=== PATIENT | female | born 1985 | race Caucasian/White ===

== ENCOUNTER 2017-11-18 10:57 | Emergency (ER) | payer OTHER ==
[~2017-11-18] VITALS: Ht 152.4 cm; Wt 56.7 kg
[2017-11-18] MEDS ORDERED: NEURONTIN800 MG PO (11:33)
[2017-11-18] MEDS ORDERED: LAMICTAL100 MG PO ×2 (11:34→11:47)
[2017-11-18] MEDS ORDERED: SEROQUEL100 MG PO ×2 (11:34→11:47)
[2017-11-18] MEDS ORDERED: TRAZODONE HCL100 MG PO ×2 (11:35→11:47)
[2017-11-18] MEDS ORDERED: GABAPENTIN800 MG PO (11:47)
== END 2017-11-18 15:28 | disposition home or self-care (01) ==
LOC: ED 10:57
DX: F31.9 Bipolar disorder, unspecified (principal); F32.9 Major depressive disorder, single episode, unspecified; F43.10 Post-traumatic stress disorder, unspecified; F17.200 Nicotine dependence, unspecified, uncomplicated; Z79.899 Other long term (current) drug therapy
CPT/HCPCS: 99283

== ENCOUNTER 2022-11-06 21:35 | Emergency (ER) | payer OTHER ==
[~2022-11-06] VITALS: Ht 152.4 cm; Wt 56.7 kg
[~2022-11-06 21:35] MED LIST: GABAPENTIN800 MG PO; LAMICTAL100 MG PO; NEURONTIN800 MG PO; SEROQUEL100 MG PO; TRAZODONE HCL100 MG PO
== END 2022-11-07 11:43 | disposition home or self-care (01) ==
LOC: ED 21:35
DX: R45.851 Suicidal ideations (principal); S16.1XXA Strain of muscle, fascia and tendon at neck level, initial encounter; S39.012A Strain of muscle, fascia and tendon of lower back, initial encounter; F17.200 Nicotine dependence, unspecified, uncomplicated; V89.2XXA Person injured in unspecified motor-vehicle accident, traffic, initial encounter; Z79.899 Other long term (current) drug therapy; Z20.822 Contact with and (suspected) exposure to COVID-19
CPT/HCPCS: 36415; 70450; 71260; 72125; 74177; 80053; 83605; 84702; 85025; 86850; 86900; 86901; 87502; A9270; C9803; G0480; J1170; J3010; J7121; Q9967; U0003

== ENCOUNTER 2022-11-07 13:39 | Emergency (ER) | payer OTHER ==
[~2022-11-07] VITALS: Ht 152.4 cm; Wt 56.7 kg
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
== END 2022-11-12 14:26 ==
LOC: ED 13:39
DX: F17.200 Nicotine dependence, unspecified, uncomplicated (principal); Z20.822 Contact with and (suspected) exposure to COVID-19
CPT/HCPCS: 36415; 80053; 81003; 84443; 85025; 87502; 99285; A9270; A9270-GY; C9803; G0480; Q0177; U0003